=== PATIENT | female | born 2000 | race African-American/Black ===

== ENCOUNTER 2022-07-31 15:46 | Emergency (ER) | payer SELFPAY ==
[2022-07-31] MEDS ORDERED: Ketorolac Tromethamine 30 MG/ML VIAL ONE (17:20)
== END 2022-07-31 18:40 | disposition home or self-care (01) ==
LOC: ERS 15:46
DX: J03.90 Acute tonsillitis, unspecified (principal); Z20.822 Contact with and (suspected) exposure to COVID-19
CPT/HCPCS: 87081; 87430; 96372; 99283; J1885; U0003; U0005